=== PATIENT | male | born 2000 | race Caucasian/White ===

== ENCOUNTER 2023-12-17 11:44 | Emergency (ER) | payer OTHER ==
[~2023-12-17] VITALS: Ht 193 cm; Wt 113.4 kg
[2023-12-17 13:56] VITALS: BP 127/73; TEMP 98.2; O2SAT 98
== END 2023-12-17 13:56 | disposition home or self-care (01) ==
LOC: ER 11:57
DX: S83.004A Unspecified dislocation of right patella, initial encounter (principal); X50.1XXA Overexertion from prolonged static or awkward postures, initial encounter; Y93.89 Activity, other specified; Y92.89 Other specified places as the place of occurrence of the external cause; Y99.8 Other external cause status
CPT/HCPCS: 73564-TC